=== PATIENT | female | born 1965 | race Caucasian/White ===

== ENCOUNTER 2021-05-01 22:28 | Emergency (ER) | payer MEDICARE, OTHER ==
--- NOTE | 2021-05-01 22:54 | EDM.PDOC ---
ED HPI GENERAL MEDICAL PROBLEM - General Stated Complaint: FALL Time Seen by Provider: 05/01/21 22:41 Source of Information: Reports: Patient, Family - History of Present Illness INITIAL COMMENTS - FREE TEXT/NARRATIVE: Estrella is a 55 y/o female who comes to the ER via POV with her reporting that she had fallen. She was walking in to her brother's home and she missed a step and a cat ran through her feet at the same time and she fell face first to the ground. Denies LOC> Her forehead and nose hurt. She has a history of Parkinson's with an implanted neurostimulator and she is concerned about that following the fall. She is also having pain in her right knee. - Related Data Allergies Allergy/AdvReac Type Severity Reaction Status Date / Time codeine Allergy Anaphylactic Verified 05/01/21 23:04 Shock fentanyl Allergy Anaphylactic Verified 05/01/21 23:04 Shock hydromorphone [From Dilaudid] Allergy Anaphylactic Verified 05/01/21 23:04 Shock meperidine [From Demerol] Allergy Anaphylactic Verified 05/01/21 23:04 Shock morphine Allergy Anaphylactic Verified 05/01/21 23:04 Shock Home Meds: Home Meds . [Unable to Verify Home Med List] 05/01/21 [History] Review of Systems - Review of Systems Review Of Systems: See Below Constitutional: Reports: No Symptoms Eyes: Reports: No Symptoms Ears: Reports: No Symptoms Nose: Reports: Pain Mouth/Throat: Reports: No Symptoms Respiratory: Reports: No Symptoms Cardiovascular: Reports: No Symptoms GI/Abdominal: Reports: No Symptoms Genitourinary: Reports: No Symptoms Musculoskeletal: Reports: Joint Pain (right knee) Skin: Reports: Other (Abrasion to forehead) Neurological: Reports: No Symptoms Psychiatric: Reports: No Symptoms ED EXAM, GENERAL - Physical Exam Exam: See Below Exam Limited By: No Limitations General Appearance: Alert, WD/WN, No Apparent Distress (Adult female, ambulated in to the ER with stand by assist of her .) Eye Exam: Bilateral Eye: PERRL Ears: Normal External Exam, Normal Canal, Hearing Grossly Normal Nose: Normal Mucosa, No Blood, Other (Note abrasion to bridge of nose, no active bleeding noted, no deformity, but tender with palpation.) Throat/Mouth: Normal Inspection, Normal Lips, Normal Voice Head: Normocephalic, Other (Note abrasion to forehead region.) Neck: Normal Inspection, Supple, Non-Tender Respiratory/Chest: No Respiratory Distress, Lungs Clear, Chest Non-Tender Cardiovascular: Normal Peripheral Pulses, Regular Rate, Rhythm, No Murmur GI/Abdominal: Normal Bowel Sounds, Soft (Female) Exam: Deferred Rectal (Female) Exam: Deferred Back Exam: Normal Inspection, Full Range of Motion Extremities: Normal Range of Motion, No Pedal Edema, Normal Capillary Refill, Ot her (Right Knee redness with mild tenderness with ROM) Neurological: Alert, Oriented, CN II-XII Intact, Normal Cognition, No Motor/Sensory Deficits Psychiatric: Normal Affect, Normal Mood Skin Exam: Warm, Dry, Intact, Normal Color Lymphatic: No Adenopathy Course - Vital Signs Text/Narrative:: 2240 The patient was seen by the [facility]. CTs and Xrays ordered. 0010 CT/Xray reports reviewed. No acute findings noted. Resuls discussed with the patient and her . She was given discharge instructions and left the ER in stable condition. - Orders/Labs/Meds Orders: Active Orders 24 hr Category Date Time Status Cervical Spine wo Cont [CT] Stat Exams 05/01/21 22:47 Taken Head wo Cont [CT] Stat Exams 05/01/21 22:47 Taken Knee 1V or 2V Rt [CR] Stat Exams 05/01/21 22:47 Taken Max Facial Sinus wo Cont [CT] Stat Exams 05/01/21 22:47 Taken - Radiology Interpretation Free Text/Narrative:: XR Right Knee=no acute findings (See final report) CT Head WO=no intracranial findings CT CSpine WO=no acute findings CT Facial Bones WO=no fx noted Departure - Departure Time of Disposition: 00:06 Disposition: Home, Self-Care 01 Condition: Good Clinical Impression: Fall from ground level, Hx of Parkinson's disease Fall Qualifiers: Encounter type: initial encounter Qualified Code(s): W19.XXXA - Unspecified fall, initial encounter Facial abrasion Qualifiers: Encounter type: initial encounter Qualified Code(s): S00.81XA - Abrasion of ot her part of head, initial encounter - Discharge Information *PRESCRIPTION DRUG MONITORING PROGRAM REVIEWED*: Not Applicable *COPY OF PRESCRIPTION DRUG MONITORING REPORT IN PATIENT [facility]: Not Applicable Instructions: Abrasion, Understanding Your Risk for Falls, Head Injury, Adult, [id number] Referrals: PCP,Not In Area [Primary Care Provider] - Additional Instructions: -Apply ice as needed to the facial region. -Apply antibiotic ointment as needed to the abrasions and wash them well with soap and water, watch for any symptoms of infection. -Minor head injury guidelines. Monitor for any concerning symptoms and return as needed. See Head Injury Instructions attached. -Follow up with your PCP as needed -Return to the ER for any further concerns - My Orders Last 24 Hours: My Active Orders 05/01/21 22:47 Cervical Spine wo Cont [CT] Stat Head wo Cont [CT] Stat Knee 1V or 2V Rt [CR] Stat Max Facial Sinus wo Cont [CT] Stat - Assessment/Plan Last 24 Hours: My Active Orders 05/01/21 22:47 Cervical Spine wo Cont [CT] Stat Head wo Cont [CT] Stat Knee 1V or 2V Rt [CR] Stat Max Facial Sinus wo Cont [CT] Stat Assessment:: 1)Fall from Ground Level 2)Abrasion 3)Hx of Parkinson's Plan: As above
--- NOTE | 2021-05-02 07:49 | CT ---
[id number] CT/CT Cervical Spine WO IV Exam: CT Cervical Spine WO IV Clinical Data: TRAUMA COMPARISON: NO PREVIOUS SIMILAR EXAM IS AVAILABLE FINDINGS: No fracture or subluxation is seen There are degenerative changes There is reversal of the normal lordosis. The prevertebral soft tissues are unremarkable IMPRESSION: NO FRACTURE OR SUBLUXATION Sridhar Becerra MD 05/02/21 [id number] Thank you for allowing us to participate in the care of your patient.
--- NOTE | 2021-05-02 07:52 | CT ---
[id number] CT/CT Sinus Survey WO IV Exam: CT Sinus Survey WO IV Clinical Data: TRAUMA COMPARISON: NO PREVIOUS SIMILAR EXAM IS AVAILABLE FINDINGS: The paranasal sinuses are aerated No fracture is seen Basal ganglia electrodes are identified IMPRESSION: AERATED PARANASAL SINUSES NO FACIAL FRACTURE Sridhar Becerra MD 05/02/21 [id number] Thank you for allowing us to participate in the care of your patient.
--- NOTE | 2021-05-02 07:54 | CT ---
[id number] CT/CT Head WO IV EXAM: CT Head WO IV CLINICAL DATA: TRAUMA COMPARISON: No previous similar exam is available for comparison. FINDINGS: There is no mass or mass effect. Bilateral basal ganglia electrodes are seen There is no hemorrhage or hydrocephalus. There are no extra-axial fluid collections. There are no sites of abnormal attenuation. IMPRESSION: NO PLAIN CT EVIDENCE OF ACUTE INTRACRANIAL PROCESS. Sridhar Becerra MD 05/02/21 0753 Thank you for allowing us to participate in the care of your patient.
--- NOTE | 2021-05-02 07:55 | CR ---
[id number] RAD/RAD Knee Right 1-2V EXAM: RAD Knee Right 1-2V CLINICAL DATA: FROM COMPARISON: No previous similar exam is available. FINDINGS: No fracture or dislocation is seen. Degenerative changes are seen There is no radiopaque foreign body in the soft tissues. There is no air in the soft tissues. There is no cortical thickening or periosteal reaction either. IMPRESSION: NEGATIVE PLAIN FILM EXAM. Sridhar Becerra MD 05/02/21 [id number] Thank you for allowing us to participate in the care of your patient.
== END 2021-05-02 00:20 | disposition home or self-care (01) ==
LOC: VM.ED 22:28
DX: S00.81XA Abrasion of other part of head, initial encounter (principal); Z86.69 Personal history of other diseases of the nervous system and sense organs; Z88.6 Allergy status to analgesic agent; Z88.5 Allergy status to narcotic agent; Z88.8 Allergy status to other drugs, medicaments and biological substances; W18.39XA Other fall on same level, initial encounter
CPT/HCPCS: 70450; 70486; 72125; 73560-RT; 99284; 99284-25